=== PATIENT | male | born 1950 | race African-American/Black ===

== ENCOUNTER 2016-05-31 05:00 | Emergency (ER) | payer MEDICARE, MEDICAID ==
[~2016-05-31] VITALS: Ht 167.6 cm; Wt 95.3 kg
[2016-05-31 05:03] VITALS: BP 181/106
[2016-05-31 05:46] LABS: Basophils # (auto) 0 uL; Basophils % (auto) 0.2 % (0.0-2.0); Eosinophils # (auto) 0 uL; Eosinophils % (auto) 0.7 % (0.0-7.0); Hematocrit 48.5 % (41.0-53.0); Hemoglobin 15.7 g/dL (13.5-17.5); Lymphocytes # (auto) 1.3 uL; Lymphocytes % (auto) 20.6 % (10.0-50.0); Mean Corpuscular Hemoglobin 30.7 pg (28.0-32.0); Mean Corpuscular Hgb Conc. 32.3 g/dL (32.0-36.0); Mean Corpuscular Volume 95.1 fL (80.0-100.0); Mean Platelet Volume 9.9 fL (7.4-10.4); Monocytes # (auto) 0.6 uL; Monocytes % (auto) 9.1 % (0.0-12.0); Neutrophils # (auto) 4.4 uL; Neutrophils % (auto) 69.4 % (37.0-80.0); Platelet Count (auto) 207 10^3/uL (140-450); White Blood Cell 6.3 10^3/uL (4.4-10.8)
[2016-05-31 05:46] LABS: Urine Bilirubin Negative (Negative); Urine Color Yellow (Yellow); Urine Glucose Normal (Normal); Urine Ketone Negative (Negative); Urine Nitrite Negative (Negative); Urine RBC 5 /hpf (0 - 3); Urine Squamous Epithelial Cell FEW /hpf (<5); Urine Urobilinogen Normal (Negative)
[2016-05-31 05:48] LABS: Urine Blood 2+ /uL (Negative)
[2016-05-31 05:58] LABS: Albumin 3.5 g/dL (3.4-5.0); Calcium 8.5 mg/dL (8.5-10.1); Potassium 3.8 mmol/L (3.5-5.1)
[2016-05-31 05:59] LABS: INR 1.04 (0.9-1.15); Partial Thromboplastin Time 28.3 sec (22.64-33.71); Prothrombin Time 11.2 sec (9.37-12.3)
[2016-05-31 06:02] LABS: BUN/Creatinine Ratio 16.2
[2016-05-31 06:07] LABS: Bilirubin, Total 0.4 mg/dL (0.2-1.0); Total Protein 7.5 g/dL (6.4-8.2)
== END 2016-05-31 07:50 | disposition home or self-care (01) ==
LOC: ER 05:09
DX: R33.9 Retention of urine, unspecified (principal); E11.9 Type 2 diabetes mellitus without complications; I10 Essential (primary) hypertension; R10.30 Lower abdominal pain, unspecified
CPT/HCPCS: 36415; 51702; 80053; 81001; 84484; 85025; 85610; 85730; 93005

== ENCOUNTER 2016-06-08 10:22 | Inpatient (IN) | payer MEDICARE, MEDICAID ==
[~2016-06-08] VITALS: Ht 167.6 cm; Wt 91.8 kg
[2016-06-08 11:37] LABS: Basophils # (auto) 0 uL; Basophils % (auto) 0.1 % (0.0-2.0); Eosinophils # (auto) 0 uL; Eosinophils % (auto) 0.1 % (0.0-7.0); Hemoglobin 14.6 g/dL (13.5-17.5); Lymphocytes # (auto) 1.2 uL; Lymphocytes % (auto) 7.4 % (10.0-50.0); Mean Corpuscular Hemoglobin 30.5 pg (28.0-32.0); Mean Corpuscular Hgb Conc. 32.4 g/dL (32.0-36.0); Mean Corpuscular Volume 93.9 fL (80.0-100.0); Mean Platelet Volume 10.5 fL (7.4-10.4); Monocytes # (auto) 1.1 uL; Monocytes % (auto) 6.9 % (0.0-12.0); Neutrophils # (auto) 14.1 uL; Neutrophils % (auto) 85.5 % (37.0-80.0); Platelet Count (auto) 230 10^3/uL (140-450); Red Cell Distribution Width 15.3 % (11.6-16.0); SUSPECT VIEW TRANSMISSION; White Blood Cell 16.5 10^3/uL (4.4-10.8)
[2016-06-08 12:02] LABS: Albumin 3.1 g/dL (3.4-5.0); Bilirubin, Total 0.8 mg/dL (0.2-1.0); Calcium 8.4 mg/dL (8.5-10.1); Potassium 4.3 mmol/L (3.5-5.1); Total Protein 6.9 g/dL (6.4-8.2)
[2016-06-08 12:39] LABS: B-Type Natriuretic Peptide 1161.46 pg/mL (0-100); Temperature: 23.1 C (20.0-25.0)
[2016-06-08 12:51] LABS: Urine Bilirubin Negative (Negative); Urine Blood 1+ /uL (Negative); Urine Color Yellow (Yellow); Urine Glucose Normal (Normal); Urine Ketone Negative (Negative); Urine Mucus FEW (None Seen); Urine Nitrite POSITIVE (Negative); Urine RBC 60 /hpf (0 - 3); Urine Squamous Epithelial Cell FEW /hpf (<5); Urine Urobilinogen Normal (Negative)
[2016-06-08] MEDS ORDERED: HYDROcodone-ACET 5/325MG TAB PO PRN (14:15)
[2016-06-08] MEDS ORDERED: MORPHINE SULF INJ 2 MG/ML SYRINGE 1ML IV PRN ×2 (14:15)
[2016-06-08] MEDS ORDERED: ACETAMINOPHEN 325 MG TAB PO PRN (14:15)
[2016-06-08] MEDS: AZITHROMYCIN 500MG/D5W 250ML 250 ML IV ONE ×2 (14:15→15:41)
[2016-06-08] MEDS ORDERED: cefTRIAXone 1GM/50ML D5W 50 ML IV ONE (14:15)
[2016-06-08] MEDS ORDERED: DOCUSATE SOD 100 MG CAP PO PRN (14:15)
[2016-06-08] MEDS ORDERED: DEXTROSE (50%) 50ML SYRG IV PRN (14:15)
[2016-06-08] MEDS ORDERED: ONDANSETRON HCL 4 MG/2 ML VIAL IV PRN (14:15)
[2016-06-08] MEDS ORDERED: ASPirin-EC 81 mg tab PO ONE (14:15)
[2016-06-08] MEDS ORDERED: TEMAZEPAM 15 MG CAP PO PRN (14:15)
[2016-06-08] MEDS ORDERED: NITROGLYCERIN 0.4 MG SL TAB SL PRN (14:15)
[2016-06-08] MEDS ORDERED: LISINOPRIL 20 MG TAB PO ONE (14:15)
[2016-06-08] MEDS ORDERED: CARVEDILOL 12.5 MG TAB PO ONE (14:15)
[2016-06-08] MEDS ORDERED: SODIUM CHLORIDE 0.9% 500 ML IV ONE (14:30)
[2016-06-08] MEDS ORDERED: LEVOFLOXACIN 500MG 100 ML IV ONE (14:30)
[2016-06-08] MEDS ORDERED: TAMS0.4C36 PO (15:28)
[2016-06-08] MEDS ORDERED: LISI40TA PO (15:28)
[2016-06-08] MEDS ORDERED: HYDR-2652 PO (15:28)
[2016-06-08] MEDS ORDERED: CARV12.516 OR (15:28)
[2016-06-08] MEDS ORDERED: ATOR20TA50 PO (15:28)
[2016-06-08] MEDS ORDERED: SPIR25TA88 PO (15:28)
[2016-06-08] MEDS ORDERED: ISOSPOW2 PO (15:28)
[2016-06-08 17:00] VITALS: BP 143/64
[2016-06-08] MEDS: ACCU-CHEK COMFORT CURVE STRIP VI SCH ×2 (17:00→22:08)
[2016-06-08] MEDS: InsuLIN REG 1unit/0.01ml Soln (100units/ml) SC SCH ×2 (17:00→22:00)
[2016-06-08] MEDS: TAMSULOSIN HYDROCHLORIDE 0.4 MG CAP PO SCH (17:01)
[2016-06-08] MEDS: SPIRONOLACTONE 25 MG TAB PO SCH (17:01)
[2016-06-08] MEDS: Boost Glucose Control 8 Ounces PO SCH (17:01)
[2016-06-08 21:45] VITALS: BP 129/67
[2016-06-08] MEDS: SODIUM CHLOR 0.9% PF (SALINE LOCK) 10ML VIAL IV SCH (22:05)
[2016-06-08] MEDS: hydrALAZINE HCL 25 MG TAB PO SCH (22:06)
[2016-06-08] MEDS: CARVEDILOL 12.5 MG TAB PO SCH (22:07)
[2016-06-08] MEDS: ATORVASTATIN 20 MG TAB PO SCH (22:08)
[2016-06-08] MEDS: ISOSORBIDE DINITRATE 10 MG TAB PO SCH (22:08)
[2016-06-09 05:10] VITALS: BP 112/72
[2016-06-09] MEDS: SODIUM CHLOR 0.9% PF (SALINE LOCK) 10ML VIAL IV SCH ×3 (05:40→21:40)
[2016-06-09] MEDS: SPIRONOLACTONE 25 MG TAB PO SCH ×2 (05:40→17:43)
[2016-06-09 05:49] LABS: Basophils # (auto) 0.1 uL; Basophils % (auto) 0.5 % (0.0-2.0); Eosinophils # (auto) 0.1 uL; Eosinophils % (auto) 0.5 % (0.0-7.0); Hemoglobin 13.4 g/dL (13.5-17.5); Lymphocytes # (auto) 2.6 uL; Lymphocytes % (auto) 18.5 % (10.0-50.0); Mean Corpuscular Hemoglobin 30.5 pg (28.0-32.0); Mean Corpuscular Volume 95.1 fL (80.0-100.0); Mean Platelet Volume 9.8 fL (7.4-10.4); Monocytes # (auto) 1.5 uL; Monocytes % (auto) 10.7 % (0.0-12.0); Neutrophils # (auto) 9.9 uL; Neutrophils % (auto) 69.8 % (37.0-80.0); Platelet Count (auto) 215 10^3/uL (140-450); Red Cell Distribution Width 14.9 % (11.6-16.0); White Blood Cell 14.2 10^3/uL (4.4-10.8)
[2016-06-09] MEDS: InsuLIN REG 1unit/0.01ml Soln (100units/ml) SC SCH ×4 (06:10→21:41)
[2016-06-09] MEDS: ACCU-CHEK COMFORT CURVE STRIP VI SCH ×4 (06:10→21:42)
[2016-06-09 06:16] LABS: Potassium 4.2 mmol/L (3.5-5.1)
[2016-06-09 06:25] LABS: Albumin 2.9 g/dL (3.4-5.0); BUN/Creatinine Ratio 15.1
[2016-06-09 06:27] LABS: Bilirubin, Total 0.7 mg/dL (0.2-1.0); Total Protein 6.4 g/dL (6.4-8.2)
[2016-06-09] MEDS: Boost Glucose Control 8 Ounces PO SCH ×3 (07:58→17:43)
[2016-06-09 08:27] VITALS: BP 124/65
[2016-06-09] MEDS: cefTRIAXone 1GM/50ML D5W 50 ML IV SCH (08:39)
[2016-06-09] MEDS: AZITHROMYCIN 500MG/D5W 250ML 250 ML IV SCH (09:27)
[2016-06-09] MEDS: MULTIPLE VITAMIN TAB PO SCH (09:28)
[2016-06-09] MEDS: ISOSORBIDE DINITRATE 10 MG TAB PO SCH ×2 (09:29→21:41)
[2016-06-09] MEDS: ASPirin-EC 81 mg tab PO SCH (09:29)
[2016-06-09] MEDS: LISINOPRIL 20 MG TAB PO SCH (09:29)
[2016-06-09] MEDS: hydrALAZINE HCL 25 MG TAB PO SCH ×2 (09:30→21:40)
[2016-06-09] MEDS: CARVEDILOL 12.5 MG TAB PO SCH ×2 (09:35→21:40)
[2016-06-09 12:28] VITALS: BP 93/48
[2016-06-09 17:01] VITALS: BP 135/78
[2016-06-09 17:09] LABS: BUN/Creatinine Ratio 20.7; Calcium 8.4 mg/dL (8.5-10.1); Potassium 4.5 mmol/L (3.5-5.1)
[2016-06-09] MEDS: TAMSULOSIN HYDROCHLORIDE 0.4 MG CAP PO SCH (17:43)
[2016-06-09] MEDS: ATORVASTATIN 20 MG TAB PO SCH (21:41)
[2016-06-09 21:59] VITALS: BP 141/79
[2016-06-10 04:55] VITALS: BP 122/61
[2016-06-10] MEDS: SODIUM CHLOR 0.9% PF (SALINE LOCK) 10ML VIAL IV SCH ×3 (05:30→22:05)
[2016-06-10] MEDS: SPIRONOLACTONE 25 MG TAB PO SCH ×2 (05:30→17:40)
[2016-06-10] MEDS: InsuLIN REG 1unit/0.01ml Soln (100units/ml) SC SCH ×4 (06:06→22:00)
[2016-06-10] MEDS: ACCU-CHEK COMFORT CURVE STRIP VI SCH ×4 (06:06→22:06)
[2016-06-10] MEDS: cefTRIAXone 1GM/50ML D5W 50 ML IV SCH (08:43)
[2016-06-10] MEDS: Boost Glucose Control 8 Ounces PO SCH ×3 (08:44→17:40)
[2016-06-10 09:18] VITALS: BP 158/76
[2016-06-10] MEDS: AZITHROMYCIN 500MG/D5W 250ML 250 ML IV SCH (09:52)
[2016-06-10] MEDS: hydrALAZINE HCL 25 MG TAB PO SCH ×2 (09:52→22:05)
[2016-06-10] MEDS: ASPirin-EC 81 mg tab PO SCH (09:53)
[2016-06-10] MEDS: MULTIPLE VITAMIN TAB PO SCH (09:53)
[2016-06-10] MEDS: ISOSORBIDE DINITRATE 10 MG TAB PO SCH ×2 (09:53→22:06)
[2016-06-10] MEDS: LISINOPRIL 20 MG TAB PO SCH (09:54)
[2016-06-10] MEDS: CARVEDILOL 12.5 MG TAB PO SCH ×2 (10:15→22:00)
[2016-06-10 12:30] VITALS: BP 100/47
[2016-06-10] MEDS: LEVOFLOXACIN 500 MG TAB PO SCH (15:33)
[2016-06-10 16:56] VITALS: BP 138/76
[2016-06-10] MEDS: TAMSULOSIN HYDROCHLORIDE 0.4 MG CAP PO SCH (17:40)
[2016-06-10 22:00] VITALS: BP 120/56
[2016-06-10] MEDS: ATORVASTATIN 20 MG TAB PO SCH (22:06)
[2016-06-11 05:00] VITALS: BP 121/75
[2016-06-11 05:57] LABS: Basophils # (auto) 0 uL; Basophils % (auto) 0.4 % (0.0-2.0); Eosinophils # (auto) 0.1 uL; Eosinophils % (auto) 1.2 % (0.0-7.0); Hematocrit 43.7 % (41.0-53.0); Lymphocytes # (auto) 2.2 uL; Lymphocytes % (auto) 27.8 % (10.0-50.0); Mean Corpuscular Hemoglobin 30.3 pg (28.0-32.0); Mean Corpuscular Hgb Conc. 32.1 g/dL (32.0-36.0); Mean Corpuscular Volume 94.3 fL (80.0-100.0); Mean Platelet Volume 9.7 fL (7.4-10.4); Monocytes # (auto) 0.9 uL; Monocytes % (auto) 11.7 % (0.0-12.0); Neutrophils # (auto) 4.7 uL; Neutrophils % (auto) 58.9 % (37.0-80.0); Platelet Count (auto) 219 10^3/uL (140-450); Red Cell Distribution Width 15.2 % (11.6-16.0); White Blood Cell 7.9 10^3/uL (4.4-10.8)
[2016-06-11] MEDS: SODIUM CHLOR 0.9% PF (SALINE LOCK) 10ML VIAL IV SCH ×2 (06:09→14:00)
[2016-06-11] MEDS: ACCU-CHEK COMFORT CURVE STRIP VI SCH ×2 (06:09→11:37)
[2016-06-11] MEDS: InsuLIN REG 1unit/0.01ml Soln (100units/ml) SC SCH ×2 (06:09→11:30)
[2016-06-11] MEDS: SPIRONOLACTONE 25 MG TAB PO SCH (06:24)
[2016-06-11 07:18] LABS: B-Type Natriuretic Peptide 462.9 pg/mL (0-100)
[2016-06-11 08:00] VITALS: BP 120/56
[2016-06-11] MEDS: Boost Glucose Control 8 Ounces PO SCH ×2 (08:13→13:02)
[2016-06-11 09:00] VITALS: BP 132/61
[2016-06-11] MEDS: ISOSORBIDE DINITRATE 10 MG TAB PO SCH (09:45)
[2016-06-11] MEDS: ASPirin-EC 81 mg tab PO SCH (09:46)
[2016-06-11] MEDS: LISINOPRIL 20 MG TAB PO SCH (09:46)
[2016-06-11] MEDS: hydrALAZINE HCL 25 MG TAB PO SCH (09:47)
[2016-06-11] MEDS: CARVEDILOL 12.5 MG TAB PO SCH (09:47)
[2016-06-11] MEDS: LEVOFLOXACIN 500 MG TAB PO SCH (09:48)
[2016-06-11] MEDS: MULTIPLE VITAMIN TAB PO SCH (09:48)
[2016-06-11 12:14] VITALS: BP 132/61
[2016-06-11 12:40] VITALS: BP 132/61
== END 2016-06-11 13:32 | disposition home or self-care (01) | DRG 871 ==
LOC: EDUNIT# 10:22 → EDBD 10:22 → ER 10:29 → TELE 10:30 → TELE-WESTW 15:51
PROVIDERS: ADMIT Internal Medicine; ATTEND Internal Medicine Pulmonary Disease
DX: A41.9 Sepsis, unspecified organism (principal); J18.9 Pneumonia, unspecified organism; I50.23 Acute on chronic systolic (congestive) heart failure; I13.0 Hypertensive heart and chronic kidney disease with heart failure and stage 1 through stage 4 chronic kidney disease, or unspecified chronic kidney disease; N39.0 Urinary tract infection, site not specified; E44.0 Moderate protein-calorie malnutrition; I69.354 Hemiplegia and hemiparesis following cerebral infarction affecting left non-dominant side; N40.1 Benign prostatic hyperplasia with lower urinary tract symptoms; E11.21 Type 2 diabetes mellitus with diabetic nephropathy; E11.22 Type 2 diabetes mellitus with diabetic chronic kidney disease; E78.5 Hyperlipidemia, unspecified; E83.51 Hypocalcemia; G89.29 Other chronic pain; J45.909 Unspecified asthma, uncomplicated; R33.8 Other retention of urine; N18.2 Chronic kidney disease, stage 2 (mild); B96.20 Unspecified Escherichia coli [E. coli] as the cause of diseases classified elsewhere; R31.29 Other microscopic hematuria; M54.9 Dorsalgia, unspecified; D72.829 Elevated white blood cell count, unspecified; Z68.32 Body mass index [BMI] 32.0-32.9, adult; Z82.49 Family history of ischemic heart disease and other diseases of the circulatory system; Z83.3 Family history of diabetes mellitus
CPT/HCPCS: 36415; 51702; 71010; 76775; 80048; 80053; 81001; 82962; 83036; 83615; 83735; 83880; 84439; 84443; 84481; 84484; 85025; 87040; 87081; 87086; 87088; 87186; 93005; 93306; 94761; 96365; 96367; J0696; J1815

== ENCOUNTER 2016-08-09 17:56 | Emergency (ER) | payer MEDICARE, MEDICAID ==
[~2016-08-09] VITALS: Ht 170.2 cm; Wt 86.2 kg
[2016-08-09 17:56] VITALS: BP 0/0
[~2016-08-09 17:56] MED LIST: ATOR20TA50 PO; CALCIUM CHLOR(10%) 100MG/ML 10ML SYRINGE IV ONE; CAR125T OR; EPINEPHrine HCL 1 MG/10 ML SYRG IV ONE; HYDR-2652 PO; ISOSPOW2 PO; LISI40TA PO; SODIUM BICARBONATE 8.4% INJ 50ML SYRINGE IV ONE; SPIR25TA88 PO; TAMS0.4C36 PO
== END 2016-08-09 18:55 | disposition expired ==
LOC: EDBD 17:56 → ER 17:59
DX: I46.9 Cardiac arrest, cause unspecified (principal); I11.0 Hypertensive heart disease with heart failure; I50.9 Heart failure, unspecified; E11.9 Type 2 diabetes mellitus without complications; I25.10 Atherosclerotic heart disease of native coronary artery without angina pectoris; Z86.73 Personal history of transient ischemic attack (TIA), and cerebral infarction without residual deficits; E78.5 Hyperlipidemia, unspecified; Z79.899 Other long term (current) drug therapy
CPT/HCPCS: 82962; 92950; 99285; J0171